=== PATIENT | female | born 1985 | race Caucasian/White ===

== ENCOUNTER 2017-08-12 13:56 | Emergency (ER) | payer OTHER ==
[~2017-08-12] VITALS: Ht 170.2 cm; Wt 59.9 kg
[~2017-08-12 13:56] MED LIST: ABAT250V; AZIT250 PO; BIRTH CONTROL PO; BRAIN MIGHT-DH1 EACH PO; CEPH500 PO; CIPR500 PO; CIPRSO OS; CLIN150 PO; CLIN300 PO; CLOBET30L TP; CRUTCH3 USE; CYCL10 PO; Colace100 MG PO; Crutch1 EACH MISC; ESTR2 PO; FISH1000 PO; HYDACE5 PO; HYDACE5325 PO; HYDPAM25 PO; HYDR1TAB94 PO; IBUP600 PO; KETO15TC TP; LEVFLO500 PO; NAPR220 PO; NAPR500; NAPR500 PO; NAPR500EC PO; NAPR500ERA PO; Naprosyn500 MG PO; ONDA4 PO; OSTERA TABLET1 EACH PO; OXYACE5T PO; PENVK500 PO; PHENA200 PO; POLTRIOPSO OS; PRED10 PO; Percocet 5-3251 EACH PO; Prednisone20 MG PO; ROXICODONE5 MG PO; RXHYD5325 PO; RXLEVESTKI PO; SERT100 PO; SERT50 PO; SULTRIDS PO; TRAM50 PO; TRAZ100 PO; TRIA80TC TOP; TYLENOL PM; Ultram50 MG PO; Valium5 MG PO; [UNRECOGNIZED DRUG - OTHER]
[2018-04-05] MEDS ORDERED: Zofran Odt4 MG PO (00:29)
[2018-04-05] MEDS ORDERED: Norco 5-325 Ta1 EACH PO (00:29)
[2018-04-05] MEDS ORDERED: Bactrim Ds Tab1 EACH PO (01:42)
== END 2017-08-12 14:28 | disposition home or self-care (01) ==
LOC: ER 13:56
DX: J06.9 Acute upper respiratory infection, unspecified (principal); Z88.0 Allergy status to penicillin; Z79.899 Other long term (current) drug therapy; Z87.891 Personal history of nicotine dependence; J45.909 Unspecified asthma, uncomplicated
CPT/HCPCS: 99282

== ENCOUNTER 2017-09-23 15:34 | Emergency (ER) | payer OTHER ==
[~2017-09-23] VITALS: Ht 170.2 cm; Wt 59.0 kg
[2017-09-23] MEDS ORDERED: CYCL10 PO (15:52)
[2017-09-23] MEDS ORDERED: Ultram50 MG PO (15:52)
[2017-09-23] MEDS ORDERED: GABA100 PO (15:58)
[2018-04-05] MEDS ORDERED: Zofran Odt4 MG PO (00:29)
[2018-04-05] MEDS ORDERED: Norco 5-325 Ta1 EACH PO (00:29)
[2018-04-05] MEDS ORDERED: Bactrim Ds Tab1 EACH PO (01:42)
== END 2017-09-23 16:00 | disposition home or self-care (01) ==
LOC: ER 15:34
DX: M54.5 Low back pain (principal); M54.6 Pain in thoracic spine; Z88.0 Allergy status to penicillin; Z79.899 Other long term (current) drug therapy; J45.909 Unspecified asthma, uncomplicated; Z87.891 Personal history of nicotine dependence
CPT/HCPCS: 99283

== ENCOUNTER → 2017-12-06 | Outpatient (CLI) | payer OTHER ==
[~2017-12-06] MED LIST changes: +GABA100
== END ==
LOC: LAB 11:50 → LAB SHORT 11:50
DX: R05 Cough (principal)
CPT/HCPCS: 87798

== ENCOUNTER 2018-02-07 16:47 | Emergency (ER) | payer OTHER ==
[~2018-02-07] VITALS: Ht 170.2 cm; Wt 59.9 kg
== END 2018-02-07 18:59 | disposition home or self-care (01) ==
LOC: ER 16:47
DX: M54.5 Low back pain (principal); G89.29 Other chronic pain; Z88.0 Allergy status to penicillin; Z79.899 Other long term (current) drug therapy; J45.909 Unspecified asthma, uncomplicated; Z87.891 Personal history of nicotine dependence
CPT/HCPCS: 72100; 96372; 99283; J1885

== ENCOUNTER → 2018-04-04 | Outpatient (CLI) | payer OTHER ==
[~2018-04-04] MED LIST changes: +Bactrim Ds Tab1 EACH PO; -GABA100; +GABA100 PO; +Norco 5-325 Ta1 EACH PO; +Zofran Odt4 MG PO
[2018-04-04 17:44] LABS: BASOPHILS ABSOLUTE AUTO 0.04 K/mm3 (0.00-0.23); BASOPHILS PERCENT AUTO 0 % (0-2); EOSINOPHILS ABSOLUTE AUTO 0.16 K/mm3 (0.00-0.68); EOSINOPHILS PERCENT AUTO 2 % (0-6); Hematocrit 38.4 % (33.0-51.0); Hemoglobin 13.1 g/dL (11.5-16.0); IMMATURE GRAN ABSOLUTE AUTO 0.03 K/mm3 (0.00-0.10); IMMATURE GRAN PERCENT AUTO 0 % (0-1); LYMPHOCYTES ABSOLUTE AUTO 2.13 K/mm3 (0.84-5.20); LYMPHOCYTES PERCENT AUTO 23 % (21-46); MONOCYTES ABSOLUTE AUTO 0.61 K/mm3 (0.16-1.47); MONOCYTES PERCENT AUTO 7 % (4-13); Mean Corpuscular HGB 31.3 pg (26.0-34.0); Mean Corpuscular HGB Conc 34.1 g/dL (31.5-36.5); Mean Corpuscular Volume 92 fL (80-100); Mean Platelet Volume 10.1 fL (9.1-12.4); NEUTROPHILS ABSOLUTE AUTO 6.12 K/mm3 (1.96-9.15); NEUTROPHILS PERCENT AUTO 67 % (41-73); Platelet Count 238 K/mm3 (150-400); RDW Coefficient Variation 12.8 % (11.7-14.2); RDW Standard Deviation 42.3 fL (35.1-46.3); Red Blood Cell Count 4.18 M/mm3 (3.80-5.20); White Blood Cell Count 9.09 K/mm3 (4.00-11.30)
[2018-04-04 17:55] LABS: Alanine Aminotransfer (ALT/SGP 26 U/L (12-78); Albumin, Blood 4.2 g/dL (3.4-5.0); Albumin/Globulin Ratio 1.3 (0.8-1.8); Alk Phos 104 U/L (40-126); Anion Gap 8 mmol/L (6-16); Aspartate Aminotrans (AST/SGOT 14 U/L (12-37); Bilirubin, Total 0.2 mg/dL (0.1-1.0); Blood Urea Nitrogen 8 mg/dL (8-24); Bun/Creatinine Ratio 10.4 (12.0-20.0); CO2, Blood 28 mmol/L (21-32); Calcium, Blood 9.4 mg/dL (8.5-10.1); Chloride, Blood 103 mmol/L (98-108); Creatinine, Blood 0.77 mg/dL (0.40-1.00); Globulin, Blood 3.2 g/dL (2.2-4.0); Glomerular Filtration Rate >60 (60-); Glucose, Blood 92 mg/dL (70-99); Potassium, Blood 3.7 mmol/L (3.5-5.5); Sodium, Blood 139 mmol/L (136-145); Total Protein, Blood 7.4 g/dL (6.4-8.2)
== END | disposition home or self-care (01) ==
LOC: LAB EV 17:40 → LAB SHORT 17:40
PROVIDERS: Physician Assistant Surgical
DX: R10.11 Right upper quadrant pain (principal)
CPT/HCPCS: 80053; 83690; 85025

== ENCOUNTER 2018-12-14 12:48 | Emergency (ER) | payer OTHER ==
[~2018-12-14] VITALS: Ht 172.7 cm; Wt 63.5 kg
[2018-12-14] MEDS ORDERED: HYDR1TAB94 PO (14:12)
[2018-12-14] MEDS ORDERED: IBUP600 PO (14:12)
== END 2018-12-14 14:32 | disposition home or self-care (01) ==
LOC: ER 12:48
DX: S52.124A Nondisplaced fracture of head of right radius, initial encounter for closed fracture (principal); S52.134A Nondisplaced fracture of neck of right radius, initial encounter for closed fracture; W19.XXXA Unspecified fall, initial encounter; Z88.0 Allergy status to penicillin; Z79.899 Other long term (current) drug therapy; Z87.891 Personal history of nicotine dependence
CPT/HCPCS: 29105; 73090; 99283-25; A9270-GY

== ENCOUNTER → 2019-04-29 | Outpatient (CLI) | payer OTHER | END | disposition home or self-care (01) | LOC: LAB SHORT 19:20 → LAB 19:20 | DX: L02.412 Cutaneous abscess of left axilla (principal) | CPT/HCPCS: 87070; 87077; 87147; 87186; 87205 ==

== ENCOUNTER → 2019-05-05 | Outpatient (CLI) | payer OTHER | END | disposition home or self-care (01) | LOC: LAB SHORT 14:26 → LAB 14:26 | DX: R21 Rash and other nonspecific skin eruption (principal) | CPT/HCPCS: 87798 ==

== ENCOUNTER 2024-01-29 05:09 | Emergency (ER) | payer OTHER ==
[~2024-01-29] VITALS: Ht 172.7 cm; Wt 68.0 kg
[2024-01-29] MEDS ORDERED: NS 1,000 ML IV SCH ×2 (05:35→07:45)
[2024-01-29] MEDS ORDERED: Ondansetron HCl 2 MG / ML 2ML Vial IV ONE (05:35)
[2024-01-29 05:38] LABS: BASOPHILS ABSOLUTE AUTO 0.01 K/mm3 (0.00-0.23); BASOPHILS PERCENT AUTO 0 % (0-2); EOSINOPHILS ABSOLUTE AUTO 0.07 K/mm3 (0.00-0.68); EOSINOPHILS PERCENT AUTO 2 % (0-6); Hematocrit 44.6 % (33.0-51.0); Hemoglobin 16.6 g/dL (11.5-16.0); IMMATURE GRAN ABSOLUTE AUTO 0.02 K/mm3 (0.00-0.10); IMMATURE GRAN PERCENT AUTO 1 % (0-1); LYMPHOCYTES ABSOLUTE AUTO 2.04 K/mm3 (0.84-5.20); LYMPHOCYTES PERCENT AUTO 46 % (21-46); MONOCYTES ABSOLUTE AUTO 0.61 K/mm3 (0.16-1.47); MONOCYTES PERCENT AUTO 14 % (4-13); Mean Corpuscular HGB Conc 37.2 g/dL (31.5-36.5); Mean Corpuscular Volume 94 fL (80-100); Mean Platelet Volume 10.1 fL (9.1-12.4); NEUTROPHILS ABSOLUTE AUTO 1.65 K/mm3 (1.96-9.15); NEUTROPHILS PERCENT AUTO 37 % (41-73); Platelet Count 162 K/mm3 (150-400); RDW Coefficient Variation 11.8 % (11.7-14.2); RDW Standard Deviation 40.8 fL (35.1-46.3); Red Blood Cell Count 4.74 M/mm3 (3.80-5.20)
[2024-01-29 05:50] LABS: Source, Urine Clean Catch
[2024-01-29 05:58] LABS: Albumin, Blood 4.8 g/dL (3.4-5.0); Albumin/Globulin Ratio 1.4 (0.8-1.8); Bilirubin, Total 0.8 mg/dL (0.1-1.0); Bun/Creatinine Ratio 10.1 (12.0-20.0); Calcium, Blood 9.7 mg/dL (8.5-10.1); Creatinine, Blood 0.4 mg/dL (0.40-1.00); Globulin, Blood 3.4 g/dL (2.2-4.0); Potassium, Blood 3.2 mmol/L (3.5-5.5); Total Protein, Blood 8.2 g/dL (6.4-8.2)
[2024-01-29 06:01] LABS: Blood, Urine 1+ (Neg); Glucose Qualitative, Urine Neg (Neg); Ketones, Urine 4+ (Neg); Leukocyte Esterase, Urine 1+ (Neg); Nitrite, Urine Neg (Neg); Protein, Urine 2+ (Neg); Specific Gravity, Urine 1.015 (1.003-1.022); Urobilinogen, Urine 2+ (Normal)
[2024-01-29 06:13] LABS: Appearance, Urine Clear (Clear); Bacteria Few /hpf; Bilirubin, Urine 1+ (Neg); Color, Urine Yellow (P-Yellow); Mucus Heavy (0-Heavy); Squamous Epithelial Cells Many /hpf (Few)
[2024-01-29] MEDS ORDERED: Ketorolac Tromethamine 30mg Vial IV ONE (06:30)
[2024-01-29] MEDS ORDERED: Potassium Chloride 20 MEQ TabCR PO ONE (08:00)
[2024-01-29 09:50] VITALS: BP 132/99
[2024-01-29] MEDS ORDERED: ONDA4ODT MM (09:50)
[2024-01-29 10:31] LABS: Influenza A, PCR NEGATIVE (NEGATIVE); Influenza B, PCR NEGATIVE (NEGATIVE); Resp Syncytial Virus, PCR NEGATIVE (NEGATIVE)
[2024-01-29 10:53] LABS: SARS-Cov-2 (COVID-19) PCR, MMC POSITIVE (NEGATIVE)
== END 2024-01-29 09:59 | disposition home or self-care (01) ==
LOC: ER 05:09
PROVIDERS: Emergency Medicine; Student in an Organized Health Care Education/Training Program
DX: U07.1 COVID-19 (principal); E86.0 Dehydration; R74.01 Elevation of levels of liver transaminase levels; E87.6 Hypokalemia; Z88.0 Allergy status to penicillin; Z79.899 Other long term (current) drug therapy; J45.909 Unspecified asthma, uncomplicated
CPT/HCPCS: 0241U; 74177; 76705; 80053; 81001; 85025; 87086; 96361; 96374-59; 96375; 99284-25; A9270; J1885; J2405; J7030; Q9967